=== PATIENT | female | born 1985 | race Two or more races ===

== ENCOUNTER 2021-07-07 15:15 | Emergency (ER) | payer OTHER, MEDICAID, SELFPAY ==
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
[2021-07-07 15:29] VITALS: BP 135/82; PULSE 100; RESP 20; TEMP 36.8; O2SAT 97; BMI 33.6
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
[2021-07-07] MEDS: Acetaminophen 325 MG TABLET 975 MG PO (15:55)
[2021-07-07] MEDS: Ketorolac Tromethamine 15 MG/ML VIAL IM (15:55)
[2021-07-07] MEDS: Diphth,Pertus(ACell),Tet Adult 0.5 ML SYRINGE IM (15:56)
== END 2021-07-07 17:47 | disposition home or self-care (01) ==
PROVIDERS: Emergency Provider Internal Medicine
DX: S00.83XA Contusion of other part of head, initial encounter (principal); V43.02XA Car driver injured in collision with other type car in nontraffic accident, initial encounter; Y93.89 Activity, other specified; Y92.9 Unspecified place or not applicable; Y99.9 Unspecified external cause status
CPT/HCPCS: 70450; 70486; 72125; 73080; 90471; 90715; 96372; 99284; J1885

== ENCOUNTER 2022-10-17 15:05 | Outpatient (REF) | payer OTHER, MEDICAID, SELFPAY ==
[2022-10-19 14:11] LABS: H Pylori Breath Test Negative (Negative)
== END 2022-10-17 15:06 | disposition home or self-care (01) ==
LOC: HO.LNP 15:05
PROVIDERS: Visit Provider Physician Assistant Surgical
DX: E66.01 Morbid (severe) obesity due to excess calories (principal)
CPT/HCPCS: 83013

== ENCOUNTER 2022-10-20 08:49 | Outpatient (REF) | payer OTHER, SELFPAY ==
--- NOTE | ~2022-10-20 | XR_ITS ---
EXAMINATION: XR CHEST CLINICAL INFORMATION: Morbid/severe obesity due to excess calories COMPARISON: None TECHNIQUE: 2 views of the chest were obtained. FINDINGS: No significant abnormality is noted involving the heart, lungs, mediastinum, bony thorax or soft tissues. XR/XR chest 2V IMPRESSION: Unremarkable chest examination.
[2022-10-20 09:34] LABS: MANUAL DIFF FLAG NO
[2022-10-20 10:05] LABS: Basophils Percent Auto 0.4 % (0-2); Eosinophils Absolute Auto 0.2 X10*3/uL (0.0-0.4); Eosinophils Percent Auto 2.7 % (0-4); Hematocrit 40.8 % (37.0-47.0); Hemoglobin 13.7 g/dl (12.0-16.0); Imm Gran Abs Auto 0.02 X10*3/uL (0.00-0.03); Imm Gran Pct Auto 0.3 % (0.0-0.4); Lymphocytes Absolute Auto 1.7 X10*3/uL (1.2-4.9); Lymphocytes Percent Auto 21.1 % (20-40); Mean Corpuscular HGB Conc 33.6 g/dl (31.0-35.0); Mean Corpuscular Hemoglobin 28.8 pg (27.0-33.0); Mean Corpuscular Volume 85.7 fL (80.0-98.0); Mean Platelet Volume 11.9 fL (9.4-12.3); Monocytes Absolute Auto 0.5 X10*3/uL (0.1-1.2); Monocytes Percent Auto 6.9 % (2-11); Neutrophils Absolute Auto 5.4 x10*3/uL (2.0-8.3); Neutrophils Percent Auto 68.6 % (45-73); Platelet Count 256 X10*3/uL (160-400); Red Blood Count 4.76 X10*6/uL (4.20-5.50); Red Cell Distribution Width 13.4 % (11.0-16.0); White Blood Count 7.9 X10*3/uL (4.8-10.8)
[2022-10-20 10:42] LABS: Estimated Average Glucose 91 mg/dL; Hemoglobin A1c % 4.8 %
[2022-10-20 11:07] LABS: Alanine Aminotransferase 22 U/L (0-31); Albumin Level 4.3 g/dL (3.5-5.0); Alkaline Phosphatase 66 U/L (39-117); Anion Gap 11 (12-20); Aspartate Amino Transferase 17 U/L (5-31); Bilirubin Total 0.7 mg/dL (0.0-1.0); Blood Urea Nitrogen 8 mg/dL (9-16); C Reactive Protein 0.79 mg/dL (< or = 0.50); Calcium 9.3 mg/dL (8.4-10.2); Carbon Dioxide 23 mmol/L (22-29); Chloride 108 mmol/L (96-108); Cholesterol 162 mg/dL; Estimated Glomerular Filt Rate > 60; Ferritin 207 ng/mL (10-122); Glucose Random 81 mg/dL (60-115); HDL Cholesterol 41 mg/dL; Insulin 4 uU/mL (2-29); Iron 58 mcg/dL (30-160); LDL Cholesterol Calculated 111 mg/dl; Percent Iron Saturation 24 % (15-50); Potassium 4.3 mmol/L (3.3-5.1); Sodium 138 mmol/L (135-145); TSH reflex Free T4 0.93 uIU/mL (0.32-4.0); Total Iron Binding Capacity 237 mcg/dL (228-428); Total Protein 7.1 g/dL (6.5-8.0); Triglycerides 50 mg/dL; Unsaturated Iron Binding 179 ug/dL; Vitamin D 25-OH Total 12.7 ng/mL (>30)
[2022-10-20 11:16] LABS: Folate 11.9 ng/mL (> or = 4.0); Vitamin B12 396 pg/mL (200-900)
[2022-10-22 23:28] LABS: Calcium (PTHI) 9.8 mg/dL (8.6-10.2); PTHI 71 pg/mL (16-77)
[2022-10-24 12:43] LABS: Zinc 68 mcg/dL (60-130)
[2022-10-24 21:18] LABS: Vitamin A 26 mcg/dL (38-98)
[2022-10-27 10:03] LABS: Vitamin B1 <6 nmol/L (8-30)
== END 2022-10-20 08:50 | disposition home or self-care (01) ==
LOC: HO.LAB 08:49
PROVIDERS: Visit Provider Physician Assistant Surgical
DX: E66.01 Morbid (severe) obesity due to excess calories (principal)
CPT/HCPCS: 36415; 71046; 80053; 80061; 82306; 82607; 82728; 82746; 83036; 83525; 83540; 83970; 84425; 84443; 84590; 84630; 85025; 86140

== ENCOUNTER → 2022-10-23 14:17 | Outpatient (REF) | payer OTHER, SELFPAY ==
--- NOTE | 2022-10-23 14:27 | ECG_ITS ---
Test Reason : e66.01 Blood Pressure : / mmHG Vent. Rate : 088 BPM Atrial Rate : 088 BPM P-R Int : 150 ms QRS Dur : 078 ms QT Int : 376 ms P-R-T Axes : 064 030 032 degrees QTc Int : 454 ms Normal sinus rhythm with sinus arrhythmia Possible Left atrial enlargement Borderline ECG No previous ECGs available Referred By: Felix Thornton Electronically Signed By:Moustapha Mayers
== END ==
LOC: HO.CARD 14:17
PROVIDERS: PCP Internal Medicine; Visit Provider Physician Assistant Surgical
DX: E66.01 Morbid (severe) obesity due to excess calories (principal)
CPT/HCPCS: 93005

== ENCOUNTER → 2022-11-16 13:46 | Outpatient (BNVA) | payer OTHER, SELFPAY | PROVIDERS: PCP Internal Medicine; Visit Provider Physician Assistant Surgical | DX: Z13.89 Encounter for screening for other disorder (principal) ==

== ENCOUNTER → 2022-11-22 15:18 | Outpatient (BNVA) | payer OTHER, SELFPAY | PROVIDERS: PCP Internal Medicine; Visit Provider Dietitian, Registered | DX: E66.9 Obesity, unspecified (principal) | CPT/HCPCS: 97802 ==

== ENCOUNTER 2022-12-06 09:16 | Outpatient (REF) | payer OTHER, SELFPAY ==
--- NOTE | ~2022-12-06 | FL_ITS ---
EXAMINATION: XR FLUOROSCOPY UPPER GI WITH AIR CLINICAL INFORMATION: Severe obesity due to excess calories. COMPARISON: None. TECHNIQUE: Routine upper GI air-contrast study was performed in upright and lying positions. FINDINGS: Following oral administration of thick barium and effervescent granules, there is normal propagation bolus from the oral cavity through the pharynx and esophagus and into the stomach without any evidence of obstruction, narrowing or stricture. The course, caliber and peristalsis of the stomach, duodenal bulb and the sweep are normal. The mucosal pattern of the stomach is normal. There is mild gastroesophageal reflux without hiatal hernia. FLUOROSCOPY TIME: 1.9 minutes. DOSE AREA PRODUCT: 40.926 uGy-m2 (microgray-meter squared) FL/FL upper GI w air IMPRESSION: Mild gastroesophageal reflux without hiatal hernia.
--- NOTE | ~2022-12-06 | US_ITS ---
EXAMINATION: US COMPLETE ABDOMEN WITH LIVER ELASTOGRAPHY CLINICAL INFORMATION: Morbid/severe obesity. COMPARISON: None. TECHNIQUE: Real-time imaging of the abdominal viscera. Noninvasive ultrasound liver fibrosis assessment is performed using Rj ElastPQ point quantification shear wave elastography (2D-SWE) with a C5-2 MHz transducer. Multiple elastography samples are obtained. FINDINGS: PANCREAS: The visualized pancreatic head and body are normal in appearance. The tail of of the pancreas is obscured from visualization by the overlying bowel gas. ABDOMINAL AORTA: The proximal, middle, and distal aortic segments are normal in caliber. INFERIOR VENA CAVA: Visualized portions are normal. LIVER: Normal. The liver demonstrates normal size, contour and echogenicity. No focal lesion or intrahepatic biliary duct dilatation. The right lobe measures 13.9 cm in length. The left lobe measures 9.0 cm in length. Portal flow is hepatopedal. Shear wave liver elastography is extremely limited due to body habitus. The median stiffness is 1.52 m/s (reference: normal median stiffness is 1.3 m/s or less). IQR/median stiffness to assess sampling precision is 0.18 (reference: good quality data set is IQR/median stiffness of 0.15 or less). GALLBLADDER: There is a nonmobile echogenic polyp measuring 0.2 x 0.1 x 0.2 cm. Gallbladder wall thickness is 0.28 cm. The gallbladder is physiologically distended without evidence of stones, sludge, polyps, wall thickening or pericholecystic fluid. COMMON BILE DUCT: Normal in caliber measuring 0.5 cm in diameter. RIGHT KIDNEY: There is mild pelvic fullness upper pole right kidney. No renal calculi or focal parenchymal lesions. The kidney measures 12.5 cm in maximum dimension. LEFT KIDNEY: Normal. No hydronephrosis. No renal calculi or focal parenchymal lesions. The kidney measures 10.7 cm in maximum dimension. SPLEEN: Normal. The spleen measures 12.1 cm in maximum dimension. FREE FLUID: None. US/US abdomen comp w elastography IMPRESSION: 1. Gallbladder polyps but no echogenic stones seen. 2. Mild pelvic fullness upper pole right kidney. 3. Liver elastography: Limited evaluation due to body habitus. Median liver stiffness is 1.52 m/s corresponding to cACLD (ruled out). REFERENCE: Society of Radiologists in Ultrasound Liver Stiffness Thresholds (2020): LIVER STIFFNESS THRESHOLDS: *Liver Stiffness equal or less than 1.3 m/s: High probability of being normal. *Liver Stiffness less than 1.7 m/s: In the absence of other known clinical signs, rules out compensated advanced chronic liver disease. *Liver Stiffness 1.7-2.1 m/s: Suggestive of compensated advanced chronic liver disease but need further test for confirmation. *Liver Stiffness over 2.1 m/s: Rules in compensated advanced chronic liver disease. *Liver Stiffness over 2.4 m/s: Suggestive of clinically significant portal hypertension. QUALITY OF DATA SET: *IQR/Median value equal or less than 0.15 implies a quality data set. *IQR/Median value over 0.15 implies a poor quality data set. SIGNIFICANT CHANGE FROM PRIOR EXAM: Significant change if liver stiffness measurement is 10% or greater from prior exam. OTHER CONSIDERATIONS: The stage of liver fibrosis may be overestimated in the setting of acute hepatitis, liver inflammation, elevated liver function tests, hepatic vascular congestion, obstructive cholestasis, non-fasting state, and infiltrative diseases such as amyloidosis and lymphoma. In some patients with NAFLD, the liver stiffness thresholds for compensated advanced chronic liver disease may be lower. In causes other than viral hepatitis and NAFLD, liver stiffness thresholds are not well established.
== END 2022-12-06 09:17 | disposition home or self-care (01) ==
LOC: HO.US 09:16
PROVIDERS: PCP Internal Medicine; Visit Provider Physician Assistant Surgical
DX: Z01.818 Encounter for other preprocedural examination (principal); E66.01 Morbid (severe) obesity due to excess calories; K21.9 Gastro-esophageal reflux disease without esophagitis
CPT/HCPCS: 74246; 76705; 76981

== ENCOUNTER → 2022-12-07 14:52 | Outpatient (BNVA) | payer OTHER, SELFPAY | PROVIDERS: PCP Internal Medicine; Visit Provider Surgery | DX: Z13.89 Encounter for screening for other disorder (principal) ==

== ENCOUNTER → 2023-02-15 13:48 | Outpatient (BNVA) | payer OTHER, SELFPAY | PROVIDERS: PCP Internal Medicine; Visit Provider Physician Assistant Surgical | DX: Z13.89 Encounter for screening for other disorder (principal) ==

== ENCOUNTER 2023-05-27 11:30 | Outpatient (AMB) | payer OTHER, SELFPAY ==
--- NOTE | 2023-05-27 11:42 | MHC.OFFVISWM ---
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 2 protein bars ([employer] Perfect bars at [employer], [facility], or [employer]) at 9am-11am and 3pm-5pm per day and dinner at 6pm (8 forks of protein and 8 forks of salad/vegetables). Drinking 64 oz of water Current exercise plan includes: goes to gym, treadmill, 1 hour, 5 x per week.? exercise plan: She states she had hurt her back and was unable to exercise for a month. She just started walking again this past weekend, [address], on treadmill weight loss: 20.2 pounds or 8.8 % [facility] awakens at: 4 am, bed at: 8 pm [facility] Medical History No known health problems Surgical History No history of previous surgery Family History Mother Hypertension Father Hypertension Sister No problems noted. Sister No problems noted. Sister No problems noted. Sister No problems noted. Sister Heart disease Daughter No problems noted. Social History Alcohol intake: current Alcohol intake frequency: a few times a week Patient Tobacco Use Status: Never used Tobacco Assessment & Plan Assessment & Plan (1) Obesity (BMI 30-39.9): Code(s): E66.9 - Obesity, unspecified Plan: 1. Start this meal plan on 05/29/23, approximately 2 weeks prior to surgery. Using Pure Protein shakes First shake 1 scoop, all other shakes 1/2 scoop 5-7 am 9-11 am 12-1 pm 2-4 pm 5-7 pm 2. Drink at least 64 oz fluids daily. NO SODA OR JUICE. NO CAFFEINE 3. Continue to take your vitamins as you have been doing 4. No ALCOHOLIC beverages 5. No Advil, Motirn, Aleve or NSAIDS 6. Midnight on the night before surgery, nothing by mouth to eat or drink except as specifically advised by your surgeon for medications in the morning with a small sip of water. 7. Text me if you have any questions or concerns. [phone] Telehealth Telehealth Location of provider rendering services: practice address Location of patient: other Patient Identification confirmed using: Name, : Yes Telehealth method: video Patient verbally consented to treatment: Yes Patient verbally consented to billing insurance company: Yes Patient informed of any privacy concerns related to visit: Yes Minutes spent on Phone/Video with Pt.: 10 Coding Level of Care Code Tele Est Pt Level 3 (81457) Diagnoses Obesity (BMI 30-39.9) E66.9 Time Spent (min) 20
[2023-05-27 11:43] VITALS: BMI 37.0
== END 2023-05-27 12:22 | disposition home or self-care (01) ==
LOC: HO.HBS 11:56
PROVIDERS: PCP Internal Medicine; Visit Provider Physician Assistant Surgical
DX: E66.9 Obesity, unspecified (principal); Z68.37 Body mass index [BMI] 37.0-37.9, adult
CPT/HCPCS: 99213

== ENCOUNTER → 2023-05-27 11:30 | Outpatient (BNVA) | payer OTHER, SELFPAY | PROVIDERS: PCP Internal Medicine; Visit Provider Physician Assistant Surgical ==

== ENCOUNTER 2023-05-30 13:53 | Outpatient (AMB) | payer OTHER, SELFPAY ==
--- NOTE | 2023-05-30 13:59 | MHC.OFFVISWM ---
Intake VS Expanded 05/30/23 14:05 Height 5 ft 3 in Weight 205 lb 9.6 oz BMI 36.4 Blood Pressure Location Rt brachial Blood Pressure Position Sitting Pulse 88 Pulse Source Pulse Oximeter Temp 97.6 F Temperature Source Temporal Artery Scan Pulse Oximetry 96 Oxygen Delivery Method Room Air Body Fat 96.8 Body Fat Percentage 47.1 Free Fat Mass 108.6 Muscle Mass 103.2 Visceral Mass 11.0 Water Mass 77.8 BMR 1,559 Intake Visit Reasons: (OV) Pre Op LSG 06/12/23 Viner Operator Required: Yes Viner Operator Name: Marry Information Interpreted: non-clinical & clinical Benefits Advisor: Benefits Advisor Present Allergies No Known Allergies Allergy (Verified 05/30/23 14:04) Medication List - Last Reconciled 05/30/23 by Osmar Cabezas MD acetaminophen 500 mg (15 mL) PO Q6H PRN cholecalciferol (vitamin D3) 125 mcg PO DAILY PRN cyanocobalamin (vitamin B-12) 500 mcg (2 x 250 mcg) PO DAILY ondansetron HCl 4 mg PO Q6H PRN pantoprazole 40 mg PO QAM 30 days polyethylene glycol 3350 (Miralax) Take 7 packets 2 days before surgery and 7 packets 1 day before surgery. Mix each packet with 8 oz's of water before surgery. sucralfate 10 mL PO BID 30 days thiamine HCl (vitamin B1) 100 mg PO DAILY vitamin A palmitate 10,000 units PO DAILY HPI HPI Comments History of Present Illness Details The patient is a 37-year-old woman who is seen with the help of Lisa serving as manager construction to discuss bariatric surgery. The patient reports a lifelong struggle with obesity and a highest body weight of 234lbs. The patient entered our program for surgical weight loss on 10/17/2022 with a BMI of 39.7/weight of 224 lb. She is interested in bariatric surgery because of a lifelong swartz with obesity. She has tried numerous fad diets and restricted calorie plans of medical weight loss with some success but his always regained weight. She has been working with Felix Thornton PA-C and demonstrating successful weight loss. She has dropped down to today's weight of 205.6 lb with a BMI of 36.4. She is interested in a laparoscopic sleeve gastrectomy. 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 She is currently on the liver shrinking/liquid preoperative diet Pre op work up completed as follows: SWL classes:? 06/11 BH appts: cleared [place]-11/29/22 ? ? RD appts: cleared-11/22/22 Labs: 10/20/22-low D, B1, B12:396 H. pylori: 10/17/22-neg CXR: 10/20/22-nad EK10/23/22-poss L atrial enlargement, NSR ABD U/S: 12/06/22 GB polyps UGI: 12/06/22 No HH, +GERD PFSH Medical History No known health problems Surgical History No history of previous surgery Family History Mother Hypertension Father Hypertension Sister No problems noted. Sister No problems noted. Sister No problems noted. Sister No problems noted. Sister Heart disease Daughter No problems noted. Social History Alcohol intake: current Alcohol intake frequency: a few times a week Patient Tobacco Use Status: Never used Tobacco Review of Systems Const All systems reviewed & are unremarkable except as noted in HPI and below Reports as per HPI Physical Exam Vital Signs: Last Vital Signs Temp 97.6 F 05/30/23 14:05 Pulse 88 05/30/23 14:05 Pulse Ox 96 05/30/23 14:05 Oxygen Delivery Method Room Air 05/30/23 14:05 BMI result Body Mass Index 36.4 On exam, the patient is nontoxic She is in good spirits She is anicteric She is in no respiratory distress Abdomen is obese but nontender and soft Lower extremities are free of any edema Results Reviewed Results Reviewed: Diagnostic imaging from 12/06/2022 Upper GI showed mild GERD with no evidence of a hiatal hernia Abdominal ultrasound showed a small gallbladder polyp 0.2cm x 0.1cm x 0.2cm and the common bile duct 5 mm with no significant hepatomegaly. NAFLD is not noted CXR NAD Labs from 10/20/22 White blood cell count 7.9 with normal differential; Hemoglobin 13.7 with normal indices, platelet count 256K Electrolytes are within normal parameters, BUN is 8/creatinine 0.5 a Lipid profile and liver function tests are within normal parameters Hemoglobin A1c 4.8 Iron studies show a slightly elevated ferritin at 207 but are otherwise within normal parameters Vitamin deficiencies of vitamin-A in B1 are noted and treated Helicobacter pylori breath test negative GERD 0 WILLIAM 1 ESS 6 QOL 43 Assessment & Plan Assessment & Plan (1) Obesity (BMI 30-39.9): Code(s): E66.9 - Obesity, unspecified (2) Morbid obesity: Code(s): E66.01 - Morbid (severe) obesity due to excess calories (3) Class 2 obesity: Code(s): E66.9 - Obesity, unspecified Plan The patient is congratulated on her ongoing healthy lifestyle changes and weight loss since entering the program. The option of continued medical weight loss or 2nd opinion was offered but declined. An manager construction was present for today's visit. The option of continued medical weight loss versus laparoscopic sleeve gastrectomy, possible hiatal hernia repair, intraoperative upper endoscopy and possible ventral hernia repair was reviewed and the patient would like to proceed. I reviewed the inherent risks of this procedure which include, but are not limited to: Bleeding that could require another operation or blood transfusion; the inherent risks of transfusion reaction infectious disease from blood transfusions; the risk of staple line leaks that could cause sepsis, multi-system organ failure and ; the risk of mesenteric or deep vein thrombosis of the lower extremities that could cause a fatal pulmonary embolism was reviewed; the risk of GERD that could require conversion to gastric bypass was discussed; the risk of recurrent hiatal hernia, especially in the setting of weight regain was reviewed. The risk of weight regain if maladaptive eating and sedentary behavior continue was discussed. The importance of proper diet and increased activity to augment surgical weight loss and the fact that no operation would result in weight loss of poor dietary decisions and sedentary behavior are resumed were discussed at length and apparently understood. The patient had the option of having a bobbin handler present and declined this option. Typical jatinder/postoperative course was reviewed with the patient including need for bowel prep, hydration, celebrate 4 in 1 protein shakes, early ambulation to minimize risks of DVT and PE. The patient is advised to get her prescriptions and protein shakes preoperatively. Preop Labs ordered. Activity restrictions postoperatively were reviewed and questions answered. She left FMLA forms to be completed. Activity restrictions were reviewed and apparently understood. Prescriptions were sent to her pharmacy. She will void her urinary bladder liquefaction and regasification helper, have SCDs in place and received Ancef 2 g IV liquefaction and regasification helper to surgery. Patient is also requested to provide me with a contact if she wishes someone to be called postoperatively. Orders: Orders Type and Screen 05/29/23 E66.01 - Morbid (severe) obesity due to excess calories, E66.9 - Obesity, unspecified Vitamin B12 05/29/23 E66.01 - Morbid (severe) obesity due to excess calories, E66.9 - Obesity, unspecified Comprehensive Met. Panel 05/29/23 E66.01 - Morbid (severe) obesity due to excess calories, E66.9 - Obesity, unspecified C Reactive Protein 05/29/23 E66.01 - Morbid (severe) obesity due to excess calories, E66.9 - Obesity, unspecified Ferritin 05/29/23 E66.01 - Morbid (severe) obesity due to excess calories, E66.9 - Obesity, unspecified Hemoglobin A1c 05/29/23 E66.01 - Morbid (severe) obesity due to excess calories, E66.9 - Obesity, unspecified IRON PROFILE 05/29/23 E66.01 - Morbid (severe) obesity due to excess calories, E66.9 - Obesity, unspecified Lipid Panel 05/29/23 E66.01 - Morbid (severe) obesity due to excess calories, E66.9 - Obesity, unspecified PTHI 05/29/23 E66.01 - Morbid (severe) obesity due to excess calories, E66.9 - Obesity, unspecified TSH reflex Free T4 05/29/23 E66.01 - Morbid (severe) obesity due to excess calories, E66.9 - Obesity, unspecified Vitamin A 05/29/23 E66.01 - Morbid (severe) obesity due to excess calories, E66.9 - Obesity, unspecified Vitamin B1 05/29/23 E66.01 - Morbid (severe) obesity due to excess calories, E66.9 - Obesity, unspecified Vitamin D 25-OH Total 05/29/23 E66.01 - Morbid (severe) obesity due to excess calories, E66.9 - Obesity, unspecified Zinc 05/29/23 E66.01 - Morbid (severe) obesity due to excess calories, E66.9 - Obesity, unspecified Prothrombin Time INR 05/29/23 E66.01 - Morbid (severe) obesity due to excess calories, E66.9 - Obesity, unspecified Partial Thromboplastin Time 05/29/23 E66.01 - Morbid (severe) obesity due to excess calories, E66.9 - Obesity, unspecified Complete Blood Count Auto Diff 05/29/23 E66.01 - Morbid (severe) obesity due to excess calories, E66.9 - Obesity, unspecified Medications: New polyethylene glycol 3350 (Miralax) Take 7 packets 2 days before surgery and 7 packets 1 day before surgery. Mix each packet with 8 oz's of water before surgery. 14 packets 0RF ondansetron HCl 4 mg PO Q6H PRN 20 tabs 0RF nausea and vomiting pantoprazole 40 mg PO QAM 30 days 30 tabs 2RF sucralfate 10 mL PO BID 30 days 600 mL 2RF acetaminophen 500 mg (15 mL) PO Q6H PRN 237 mL 2RF fever or pain Coding Level of Care Code Est Pt Level 4 (40087) Diagnoses Obesity (BMI 30-39.9) E66.9 Morbid obesity E66.01 Class 2 obesity E66.9
[2023-05-30 14:05] VITALS: PULSE 88; TEMP 36.4; O2SAT 96; BMI 36.4
== END 2023-05-30 15:18 | disposition home or self-care (01) ==
PROVIDERS: PCP Internal Medicine; Visit Provider Surgery
DX: E66.9 Obesity, unspecified (principal); E66.01 Morbid (severe) obesity due to excess calories
CPT/HCPCS: 99214

== ENCOUNTER → 2023-05-30 13:53 | Outpatient (BNVA) | payer OTHER, SELFPAY | PROVIDERS: PCP Internal Medicine; Visit Provider Surgery | DX: E66.01 Morbid (severe) obesity due to excess calories (principal); E66.9 Obesity, unspecified ==

== ENCOUNTER 2023-06-07 07:49 | Outpatient (REF) | payer OTHER, SELFPAY ==
[2023-06-07 08:26] LABS: MANUAL DIFF FLAG NO
[2023-06-07 09:10] LABS: Basophils Percent Auto 0.5 % (0-2); Eosinophils Absolute Auto 0.1 X10*3/uL (0.0-0.4); Eosinophils Percent Auto 1.3 % (0-4); Hematocrit 43.6 % (37.0-47.0); Hemoglobin 14.7 g/dl (12.0-16.0); Imm Gran Abs Auto 0.04 X10*3/uL (0.00-0.03); Imm Gran Pct Auto 0.5 % (0.0-0.4); Lymphocytes Absolute Auto 1.4 X10*3/uL (1.2-4.9); Lymphocytes Percent Auto 16.6 % (20-40); Mean Corpuscular HGB Conc 33.7 g/dl (31.0-35.0); Mean Corpuscular Hemoglobin 28.7 pg (27.0-33.0); Mean Platelet Volume 12.8 fL (9.4-12.3); Monocytes Absolute Auto 0.6 X10*3/uL (0.1-1.2); Monocytes Percent Auto 6.6 % (2-11); Neutrophils Absolute Auto 6.4 x10*3/uL (2.0-8.3); Neutrophils Percent Auto 74.5 % (45-73); Platelet Count 235 X10*3/uL (160-400); Red Blood Count 5.13 X10*6/uL (4.20-5.50); Red Cell Distribution Width 12.5 % (11.0-16.0); White Blood Count 8.6 X10*3/uL (4.8-10.8)
[2023-06-07 09:15] LABS: INTERNATIONAL NORM RATIO 1.2 (0.9-1.1); Prothrombin Time 14.3 SEC (11.1-13.3)
[2023-06-07 09:16] LABS: Estimated Average Glucose 88 mg/dL; Hemoglobin A1c % 4.7 %
[2023-06-07 10:08] LABS: Alanine Aminotransferase 22 U/L (0-31); Albumin Level 4.4 g/dL (3.5-5.0); Alkaline Phosphatase 71 U/L (39-117); Anion Gap 16 (12-20); Aspartate Amino Transferase 18 U/L (5-31); Bilirubin Total 0.7 mg/dL (0.0-1.0); Blood Urea Nitrogen 8 mg/dL (9-16); C Reactive Protein 1.77 mg/dL (< or = 0.50); Calcium 9.8 mg/dL (8.4-10.2); Carbon Dioxide 22 mmol/L (22-29); Chloride 105 mmol/L (96-108); Cholesterol 143 mg/dL; Estimated Glomerular Filt Rate > 60; Glucose Random 68 mg/dL (60-115); HDL Cholesterol 40 mg/dL; Iron 66 mcg/dL (30-160); LDL Cholesterol Calculated 91 mg/dl; Percent Iron Saturation 31 % (15-50); Potassium 4.1 mmol/L (3.3-5.1); Sodium 139 mmol/L (135-145); Total Iron Binding Capacity 213 mcg/dL (228-428); Total Protein 7.9 g/dL (6.5-8.0); Triglycerides 61 mg/dL; Unsaturated Iron Binding 147 ug/dL
[2023-06-07 10:25] LABS: Ferritin 356 ng/mL (10-122); Vitamin D 25-OH Total 40.7 ng/mL (>30)
[2023-06-07 10:26] LABS: Vitamin B12 1541 pg/mL (200-900)
[2023-06-10 12:42] LABS: Calcium (PTHI) 9.6 mg/dL (8.6-10.2); PTHI 44 pg/mL (16-77)
[2023-06-12 00:34] LABS: Zinc 89 mcg/dL (60-130)
[2023-06-12 16:22] LABS: Vitamin B1 35 nmol/L (8-30)
[2023-06-13 01:18] LABS: Vitamin A 17 mcg/dL (38-98)
== END 2023-06-07 07:50 | disposition home or self-care (01) ==
LOC: HO.LAB 07:49
PROVIDERS: PCP Family Medicine; Visit Provider Surgery
DX: E66.01 Morbid (severe) obesity due to excess calories (principal)
CPT/HCPCS: 36415; 80053; 80061; 82306; 82607; 82728; 83036; 83540; 83970; 84425; 84443; 84590; 84630; 85025; 85610; 85730; 86140

== ENCOUNTER 2023-06-12 08:03 | Inpatient (IN) | payer OTHER, SELFPAY ==
[2023-06-06 12:59] VITALS: BMI 35.6
[2023-06-11 10:03] LABS: COVID-19 Test Negative (Negative); IDNOW Serial# 08D9AD1C
--- NOTE | 2023-06-11 10:09 | P.CONAN_ITS ---
Documented by User: Sanna Jacobson NP 06/11/23 10:12 HPI - Anesthesia Eval Consult details Narrative: 38yo F for Gastrectomy Sleeve,EGD,poss diaphragmatic hernia,poss ventral hernia,poss open, PMFSH Active Problems Active Problems: All Active Problems (Updated 05/30/23 @ 14:14 by Osmar Cabezas MD) Class 2 obesity (Acute) Obesity (BMI 30-39.9) (Acute) Morbid obesity (Acute) Past Medical History Medical History No known health problems Family History Family History Mother Hypertension Father Hypertension Sister No problems noted. Sister No problems noted. Sister No problems noted. Sister No problems noted. Sister Heart disease Daughter No problems noted. Surgical History Surgical History No history of previous surgery Social History Social History Household Members Other:: mother Are you a primary childcare center administrator to a significant other at home: No Do you presently have visiting nurse or other home services: No Alcohol intake: current Alcohol intake frequency: does not drink Patient Tobacco Use Status: Never used Tobacco Use of substances other than those prescribed or required for medical reasons: No Have you been hit, kicked, punched, or otherwise hurt by someone within the past year? If so, by whom?: No Are you DNR?: No Advance Directives: No Advance Directives Information Provided: No Advance Directives on File: No Recently lost weight without trying: No Eating poorly because of decreased appetite: No Nutrition Risks: No Nutritional Risk Patient : No FDLMP: 05/22/23 : No Poor oral hygiene: No Meds Allergies Allergy/AdvReac Type Severity Reaction Status Date / Time No Known Allergies Allergy Verified 05/30/23 14:04 Exam Exam Date and Time: June 11, 2023 1009 Height,Weight and Vital Signs: Height 5 ft 3 in Weight 91.172 kg Pertinent Lab Results Pertinent Lab Results: Laboratory Tests 06/07/23 06/11/23 08:18 09:33 COVID-19 ([place]) Negative COVID-19 Clin Com See Note Blood Type O Positive Antibody Screen NEGATIVE Laboratory Tests 06/07/23 06/07/23 08:24 08:24 WBC 8.6 Hgb 14.7 Hct 43.6 Plt Count 235 Sodium 139 Potassium 4.1 Chloride 105 Carbon Dioxide 22 BUN 8 L Creatinine 0.61 Narrative Narrative: EKG 10/2022 Vent. Rate : 088 BPM ? ? Atrial Rate : 088 BPM ?? P-R Int : 150 ms? QRS Dur : 078 ms ? ? QT Int : 376 ms ? ? ? P-R-T Axes : 064 030 032 degrees ?? QTc Int : 454 ms ? Normal sinus rhythm with sinus arrhythmia Possible Left atrial enlargement Borderline ECG No previous ECGs available Assessment and Plan Assessment Anesthesia Assessment: Chart Reviewed Documented by User: Ami Mercer MD 06/12/23 09:59 [facility] Past Medical History Medical History No known health problems Family History Family History Mother Hypertension Father Hypertension Sister No problems noted. Sister No problems noted. Sister No problems noted. Sister No problems noted. Sister Heart disease Daughter No problems noted. Family history of problems with anesthesia: No Surgical History Surgical History No history of previous surgery History of Problems with Anesthesia: No Social History Social History Household Members Other:: mother Are you a primary childcare center administrator to a significant other at home: No Do you presently have visiting nurse or other home services: No Alcohol intake: current Alcohol intake frequency: does not drink Patient Tobacco Use Status: Never used Tobacco Use of substances other than those prescribed or required for medical reasons: No Have you been hit, kicked, punched, or otherwise hurt by someone within the past year? If so, by whom?: No Are you DNR?: No Advance Directives: No Advance Directives Information Provided: No Advance Directives on File: No Recently lost weight without trying: No Eating poorly because of decreased appetite: No Nutrition Risks: No Nutritional Risk Patient : No FDLMP: 05/22/23 : No Poor oral hygiene: No Meds Allergies Allergy/AdvReac Type Severity Reaction Status Date / Time No Known Allergies Allergy Verified 05/30/23 14:04 Exam Airway Mallampati Class: II TM Dist: >3cm Neck ROM: Full Loose/Missing/Broken Teeth: Lower Heart: rrr Lungs: cta Assessment and Plan Assessment Anesthesia Assessment: Anesthesia Plan Discussed Final Anesthetic Review Family History of Problems with Anesthesia: No History of Problems with Anesthesia: No NPO: Yes ASA Class: II Final Preanesthetic Review: No Changes in Pt Med Stat, Meds/Allgs Chart Reviewed, Consent Obtained/Reviewed and Anes Risks/Benef Reviewed Procedure Risk: Intermediate Anesthetic Plan Anesthetic Plan: GA Disposition: Standard PACU
--- NOTE | 2023-06-11 16:14 | MHC.SHP ---
Pre-Procedural Eval Section A Date of Service: 06/11/23 The patient is an INPATIENT: Yes The History & Physical has been completed within 30 days and I have reviewed it.: Yes Section B Chief Complaint: Obesity, unspecified Allergies: Allergies Allergy/AdvReac Type Severity Reaction Status Date / Time No Known Allergies Allergy Verified 05/30/23 14:04 Plan I have reviewed the history and physical and performed a pertinent physical examination on my patient. No changes have occurred unless specified. Time Spent With Patient Time: Total time managing care of this patient today ____ minutes.
[2023-06-12] VITALS (14 sets, daily range): BP systolic 121–148; BP diastolic 65–84; PULSE 79–101; RESP 16–20; TEMP 36–36.6; O2SAT 94–99; BMI 35.5
--- NOTE | 2023-06-12 08:11 | PHA.MEDREC ---
Pharmacy Consult ? Medication Reconciliation Pharmacy has completed the medication reconciliation. Reviewed med rec done by nursing
[2023-06-12] MEDS: Lactated Ringers 1,000 ML 150 ML IVCONT ×2 (08:42→13:58)
[2023-06-12] MEDS: Aprepitant 32 MG/4.4 ML VIAL IVPUSH (08:42)
[2023-06-12 09:06] LABS: HCG Quantitative < 2 mIU/mL
--- NOTE | 2023-06-12 13:10 | P.DS_ITS ---
DS: Providers Provider Date of Service: 06/13/23 Date of admission: 06/12/23 08:03 Primary care physician: Chuy Pardo MD DS: Summary Hospital Course Hospital Course: ADMITTING DIAGNOSIS: morbid obesity DISCHARGE DIAGNOSIS: same, s/p laparoscopic sleeve gastrectomy PAST SURGICAL HISTORY: none PROCEDURE: upper endoscopy, laparoscopic sleeve gastrectomy DISCHARGE SUMMARY: History of Present Illness: The patient is a 38 year-old woman with a BMI of 39.7 kg/m2 and associated co- morbidities as described above. The patient had extensive work-up, lost19.6 lbs preoperatively and was electively scheduled for laparoscopic, possible open sleeve gastrectomy and gastropexy. Risks and complications of the surgery were discussed with the patient in advance, particularly the possibility of , pulmonary embolism, anastomotic leak, bleeding, bowel injury, GERD, cardiac, renal or pulmonary complications. The patient understood all the risks and was in agreement with the surgical plan. Hospital Course: The patient underwent an uneventful laparoscopic sleeve gastrectomy with gastropexy on the day of admission. Postoperatively, the patient was transferred to the surgical floor. The patient received IV Acetaminophen and IV dilaudid for pain control. Patient was started on bariatric phase 1 diet POD #0. On postoperative day one, the patient was feeling well without nausea, vomiting, fevers, or tachycardia. The patient had some mild incisional pain and the abdomen was soft. On the morning of postoperative day one, the patient was continued on 1 ounce of water or ice every half hour. During the day, the patient did fairly well, having some incisional pain, but able to ambulate adequately and to tolerate liquids well. Since the patient is doing well, we decided that the patient was ready to be discharged. The patient was given instructions to follow-up with me next week and to call my office for any fever over 101, persistent abdominal pain, nausea, vomiting, GERD, symptoms of DVT such as calf tenderness, or leg swelling, or pulmonary embolism such as chest pain or shortness of breath. The patient was also instructed to drink 40-60 ounces of liquids per day using the 1-ounce cups. The patient had been given prescriptions for Tylenol for pain, Zofran prn for nausea, and pantoprazole and carafate previously. The patient was encouraged to ambulate and use the incentive spirometer. The patient was allowed to shower, but no baths, and encouraged to stay active at home. All of these instructions were given to the patient personally. All questions were answered and the patient understood all instructions, the instructions were also given to the patient in print. Time Spent with Patient Time attestation: Total time managing care of this patient today ____ minutes. Discharge coordination time: Less than 30 minutes Quality: Safe Use of Opioids Does Pt have an Active Cancer Diagnosis on the Problem List?: No Quality: Stroke Does the patient have a stroke diagnosis?: No Physical Exam Vital Signs: Vital Signs: Last Vital Signs Temp 97.2 F 06/12/23 08:11 Pulse 101 H 06/12/23 08:11 Resp 16 06/12/23 08:11 BP 122/65 06/12/23 08:11 Pulse Ox 96 06/12/23 08:11 O2 Del Method Room Air 06/12/23 08:11 BMI result Body Mass Index 35.6 DS: Data Data Completed and Pending Pending studies at discharge: Pending at discharge 06/12/23 12:57 Surgical [PTH] Routine Labs on day of discharge: Laboratory Results - last 24 hr 06/12/23 08:30 Beta HCG, Quant < 2 Discharge Plan Discharge Anticipated Discharge Date/Time: 06/13/23 10:08 Patient Disposition: Home, Self-Care Discharge Diagnosis: s/p sleeve gastrectomy Referrals: Chuy Pardo MD [Primary Care Provider] - 1 Week Osmar Cabezas MD [Physician] - 1 Week Discharge Medications: Continued ondansetron HCl 4 mg tablet 4 mg PO Q6H PRN (Reason: nausea and vomiting) Qty: 20 0RF pantoprazole 40 mg tablet,delayed release (DR/EC) 40 mg PO QAM 30 Days Qty: 30 2RF sucralfate 100 mg/mL suspension 10 ml PO BID 30 Days Qty: 600 2RF acetaminophen 500 mg/15 mL liquid 500 mg PO Q6H PRN (Reason: fever or pain) Qty: 237 2RF Discontinued thiamine HCl (vitamin B1) 100 mg tablet 100 mg PO DAILY Qty: 30 5RF vitamin A palmitate 10,000 unit capsule 10,000 unit PO DAILY Qty: 30 2RF cyanocobalamin (vitamin B-12) 250 mcg tablet 500 mcg PO DAILY Qty: 60 2RF cholecalciferol (vitamin D3) 125 mcg (5,000 unit) capsule 125 mcg PO DAILY PRN (Reason: vitamin D deficiency) Qty: 30 3RF Discharge Orders: Discharge Order (Routine); Ordered 06/13/23 Ordered By: Felix Thornton Diet: bariatric diet Activity on Discharge: No heavy lifting Stand Alone Forms: Patient Portal Discharge page Care Plan Goals: weight loss Health Concerns: morbid obesity Plan of Treatment: No tub baths, sex or returning to work until discussed at first post op appointment. No exercise, alcohol, tobacco or illegal drug use. Continue to use incentive spirometer hourly while awake. Walk in home for 5- 10 minutes every 2 hours during the first week. Continue phase 1 diet today and start phase 2 diet tomorrow morning. Follow all instructions in the bariatric handbook and call with any questions. 1. Please call your doctor or come back to the emergency room should any new symptoms arise. 2. You will receive a courtesy call from [facility] 24-48 hours after discharge. 3. Activity: abstain from alcohol, practice limited stair climbing, no bending, no driving, no exercise, no illicit substances, no lifting, no sex, no tub bath, no work. 4. Diet: continue as discussed with bariatric team.. 5. Dressing Change/Wound Care: Do not change or remove surgical dressings unless they are wet or soiled. 6. Call your doctor if: - Your temperature exceeds 101.5 F - You experience excessive pain or swelling - You have an unexpected reaction to medication - You have excessive bleeding - You experience continued vomiting/nausea - Your incision begins to separate - Your incision shows signs of infection such as increased redness, swelling, excessive pain, heat, or drainage (light blood or clear fluid is normal) 7. General instructions: No lifting greater than 5 lbs for the next 4 weeks[address] within 24 hours of taking narcotic pain medications. If you do not move your bowels in the next 2 days, please take milk of magnesia over the counter. Please follow the post op diet and do not advance your diet until you are seen in the office in about 2 weeks. Please walk around your home every hour or two to prevent blood clots from forming in your legs. You do not need to wake from sleeping to walk. Please sleep in a bed or couch to prevent kinking at the hips and knees. Please take your incentive spirometer (your lung commercial driver's license driver) home with you and use it for the next few days to prevent pneumonias. You may shower, no hot tubs, baths or swimming pools. Please call the office with any questions or concerns such as increasing abdominal pain, fever, chills, shortness of breath, chest pain, leg pain or swelling, or redness or drainage from your incisions. Do not hesitate to contact the office with any questions at . The patient's medical history has been reviewed and they are considered low risk for post op DVT and therefore DVT prophylaxis is not considered necessary. Travel after surgery was reviewed. The patient has not disclosed any travel plans during the first 30 days after surgery and they have been advised that within the first 30 days after surgery any bus, plane, train or car travel over 2 hours in duration is contraindicated due to the possibility of developing blood clots from immobility. Any travel, needs to include periods of ambulation of 10 minutes in duration every 2 hours. The patient was instructed to discuss any plans for travel during this period with their bariatric surgeon. Assessment: stable, post op sleeve gastrectomy Discharge Date/Time: 06/13/23 11:33
--- NOTE | 2023-06-12 13:13 | P.OP_ITS ---
Operative Note Operative Note Date of Service: 06/12/23 Narrative: Preop diagnosis: [Morbid obesity, class 2] Postop diagnosis: [Same] Procedure: [Laparoscopic sleeve gastrectomy, gastropexy, intraoperative upper endoscopy] Surgeon: Osmar Cabezas MD Assist: [Simi Burleson PA-C] Anesthesia: [GET, Ropivicaine, 0.5%] Estimated blood loss: [10cc] Specimen: [Portion of stomach with fundus] Intraoperative findings: [No hiatal hernia, thickened liver, grossly normal liver, stomach] Indications: [The patient is a 37-year-old woman who is seen with the help of Lisa serving as assault amphibious vehicle crewman to discuss bariatric surgery.? The patient reports a lifelong struggle with obesity and a highest body weight of 234lbs.? The patient entered our program for surgical weight loss on 10/17/2022 with a BMI of 39.7/weight of 224 lb.? She is interested in bariatric surgery, specifically a laparoscopic sleeve gastrectomy, because of a lifelong swartz with obesity.? She has tried numerous fad diets and restricted calorie plans of medical weight loss with some success but his always regained weight.?I reviewed the inherent risks of this procedure which include, but are not limited to: Bleeding that could require another operation or blood transfusion; the inherent risks of transfusion reaction infectious disease from blood transfusions; the risk of staple line leaks that could cause sepsis, multi-system organ failure and ; the risk of mesenteric or deep vein thrombosis of the lower extremities that could cause a fatal pulmonary embolism was reviewed; the risk of GERD that could require conversion to gastric bypass was discussed; the risk of recurrent hiatal hernia, especially in the setting of weight regain was reviewed. The risk of weight regain if maladaptive eating and sedentary behavior continue was discussed. The importance of proper diet and increased activity to augment surgical weight loss and the fact that no operation would result in weight loss of poor dietary decisions and sedentary behavior are resumed were discussed at length and apparently understood. The patient had an assault amphibious vehicle crewman present for discussion and [place] consents.?] Procedure: [The patient was identified in the preoperative holding area by myself and again in the operating suite by myself and the OR team. Patient was placed supine on the operating table. Safety straps were utilized and a footboard utilized. The patient was induced in general endotracheal anesthesia administered with excellent effect. An appropriate time-out was performed. The patient's abdomen was then widely prepped and draped in the usual manner for surgery using chlorprep. Antibiotics per protocol were administered by Anesthesia. After infiltrating preemptive local in the skin and subcutaneous tissues in the left upper quadrant, a stab incision was made sharply in the left subcostal abdomen and the Veress needle inserted without incident. An appropriate drop test was performed then a pneumoperitoneum of 15 mmHg was obtained using carbon dioxide. Opening pressures were 7 mmHg. Next, a 5 mm 0 degree scope over a 5 mm Optiview trocar was used to access the abdomen via the epigastric incision in the midline. Once the abdomen was entered, the the trocar obturator was removed and the laparoscope was used to confirm there was no injury from the Veress needle nor trocar insertion injury to the bowel or mesentery, then the scope was switched to a 5 mm 45 degree laparoscope. Next, using preemptive local, additional 5 mm trocars were placed under direct laparoscopic vision on the patient's left abdomen, then right and the 5 mm midline trocar upsized to a 12 mm to accommodate the stapler. The patient was then positioned in reverse Trendelenburg and the liver retractor deployed through the right lateral 5 mm trocar and secured. A 40 Norwegian ViSiGi bougie was inserted by Anesthesia per os and advanced to the stomach to decompress. It was then withdrawn to the GE junction all under direct laparoscopic vision. Dissection was begun along the greater curvature using the 5 mm [place] LigaSure for hemostasis and continued to the left louise of the diaphragm. Dissection was then carried towards the pylorus to 3-4 cm from the pylorus and retro gastric adhesions lysed. The gastroesophageal fat pad was carefully mobilized taking care to avoid injury to the esophagus and stomach and dissection carried towards the short gastrics taking care to avoid injury to the spleen and splenic artery. The diaphragmatic hiatus was carefully examined for a hernia, and no apparent hernia was appreciated. Next, the 40 Fr ViSiGi bougie was advanced by anesthesia under direct vision and laparoscopic guidance and positioned in the antrum approximately 3 cm from the pylorus using laparoscopic graspers to serve as a guide for a stapled sleeve gastrectomy. Stapling was performed with [employer] power stapler Endo-RENITA stapler with a purple 45 and then 60 loads. The bougie served as a guide to maintain the same sleeve caliber to avoid stricture & sleeve distortion. The 10 mm clip second baker was used to apply additional clips to the staple line. Care was taken to be sure that the sleeve laid flat and was without stricture. Once the sleeve was complete, the portion of stomach was placed in the lower abdomen to be sent for removal and permanent section. The staple line, gastrocolic omentum, spleen and short gastric areas were all inspected for hemostasis which was found to be g ood. Next, the bougie was withdrawn under laparoscopic vision used to suction the esophagus and hypopharynx and then discarded. After inspecting again for hemostasis, a gastropexy was performed using 2-0 Polysorb suture to secure the sleeve gastrectomy to the gastrocolic omentum. Next, I broke scrub perform an on-table upper endoscopy to assess the sleeve and the esophagus and stomach. The patient was returned to neutral position and the Olympus 160 gastroscope was advanced taking care to preserve the endotracheal tube. The esophagus was intubated without incident. Minimal air was insufflated and the scope advanced into the newly formed sleeve. The staple line was inspected for hemostasis and the morphology of the sleeve appeared straight with a uniform diameter. Intraoperatively, there was no evidence of staple line leak seen during laparoscopy as air was insufflated via endoscope. The scope was then used to aspirate the air from the sleeve withdrawn and removed. I then rescrubbed to return to the operative field and again inspected the field for hemostasis. After final assessment for hemostasis, the patient was returned to neutral position, a Jaimie used to withdraw the resected gastric specimen which was sent for permanent section. The fascia of the 12 mm midline was closed using an 0 Polysorb figure of 8 on a suture passer under direct laparoscopic vision. The abdomen was then deflated and all trocars removed. The suture was then tied and the skin closed with 4-0 Monocryl subcuticular sutures. The abdomen was then washed and dried, benzoin and Steri-Strips applied followed by Tegaderms. The patient tolerated the procedure well was then extubated the recover in stable condition. All sponge needle and instrument counts were correct x2. The pt requested I called her mother Kerrie at [phone] with Maddie hassan. The pt's mom's questions seemed to be satisfactorily answered.]
[2023-06-12] MEDS: fentaNYL citrate/PF 100 MCG/2 ML VIAL 25 MCG IVPUSH ×2 (13:28→13:38)
[2023-06-12] MEDS: oxyCODONE HCl Immed Release 5 MG TABLET 10 MG PO (13:28)
[2023-06-12 14:01] LABS: Hematocrit 41.8 % (37.0-47.0); Hemoglobin 13.8 g/dl (12.0-16.0)
[2023-06-12 14:12] LABS: Anion Gap 18 (12-20); Blood Urea Nitrogen 7 mg/dL (9-16); Calcium 9.5 mg/dL (8.4-10.2); Carbon Dioxide 19 mmol/L (22-29); Chloride 106 mmol/L (96-108); Creatinine Clr Calc Pharmacy 119.6; Estimated Glomerular Filt Rate > 60; Glucose Random 106 mg/dL (60-115); Potassium 3.5 mmol/L (3.3-5.1); Sodium 139 mmol/L (135-145)
[2023-06-12] MEDS: Lactated Ringers 1,000 ML 100 ML IVCONT ×2 (14:53→23:33)
[2023-06-12] MEDS: 0.9 % Sodium Chloride Flush 3 ML SYRINGE IVFLUSH ×2 (14:53→20:20)
[2023-06-12] MEDS: Famotidine/PF 20 MG/2 ML VIAL IVPUSH ×2 (14:53→20:20)
[2023-06-12] MEDS: ceFAZolin Sodium/Dextrose,Iso 2 GM/50 ML PIGGYBACK IV (16:19)
[2023-06-12] MEDS: Acetaminophen 1,000 MG/100 ML PIGGYBACK 400 MG IV (17:58)
[2023-06-12] MEDS: ondansetron HCL 4 MG/2 ML VIAL IVPUSH (20:20)
[2023-06-12 22:17] LABS: UPreg QC Valid YES; Urine Pregnancy NEGATIVE (NEGATIVE)
[2023-06-12] MEDS: Acetaminophen 1,000 MG/100 ML PIGGYBACK 16.7 MG IV (23:32)
[2023-06-12] MEDS: Metoclopramide HCl 10 MG/2 ML VIAL IVPUSH (23:33)
[2023-06-13 03:24] VITALS: BP 134/77; PULSE 75; RESP 18; TEMP 36.7; O2SAT 98
[2023-06-13] MEDS: ondansetron HCL 4 MG/2 ML VIAL IVPUSH (05:07)
[2023-06-13] MEDS: Acetaminophen 1,000 MG/100 ML PIGGYBACK 16.7 MG IV (05:07)
--- NOTE | 2023-06-13 06:28 | P.PNGS_ITS ---
Subjective Subjective Date of Service: 06/13/23 Physical Exam Vital Signs: Vital Signs: Last Vital Signs Temp 98.1 F 06/13/23 03:24 Pulse 75 06/13/23 03:24 Resp 18 06/13/23 03:24 BP 134/77 06/13/23 03:24 Pulse Ox 98 06/13/23 03:24 O2 Del Method Room Air 06/13/23 03:24 O2 Flow Rate 4 06/12/23 13:07 BMI result Body Mass Index 35.5 Objective Data Active Medications Famotidine (Famotidine/Pf 20 Mg/2 Ml Vial) 20 mg IVPUSH BID [facility] Last Admin: 06/12/23 20:20 Dose: 20 mg Documented By: MICKI Fentanyl (Fentanyl Citrate/Pf 100 Mcg/2 Ml Vial) 25 mcg IVPUSH Q5M PRN; Protocol PRN Reason: Pain, Moderate(Pain Scale 4-6) Last Admin: 06/12/23 13:38 Dose: 25 mcg Documented By: SALMA Hydromorphone HCl (Hydromorphone Hcl 0.5 Mg/0.5 Ml Syringe) 0.25 mg IVPUSH Q4H PRN; Protocol PRN Reason: Pain, Moderate(Pain Scale 4-6) Lactated Ringer's (Lr) 1,000 mls @ 100 mls/hr IVCONT .Q10H [facility] Last Admin: 06/12/23 23:33 Dose: 100 mls/hr Documented By: MICKI Acetaminophen (Ofirmev) 1,000 mg in 100 mls @ 16.7 mls/hr IV .Q6H [facility] [place] Last Admin: 06/13/23 05:07 Dose: 16.7 mls/hr Documented By: MICKI Metoclopramide HCl (Metoclopramide Hcl 10 Mg/2 Ml Vial) 10 mg IVPUSH Q6H PRN PRN Reason: Nausea Last Admin: 06/12/23 23:33 Dose: 10 mg Documented By: MICKI Ondansetron HCl (Ondansetron Hcl 4 Mg/2 Ml Vial) 4 mg IVPUSH ONCE PRN PRN Reason: Nausea and Vomiting Ondansetron HCl (Ondansetron Hcl 4 Mg/2 Ml Vial) 4 mg IVPUSH Q8H [facility] Last Admin: 06/13/23 05:07 Dose: 4 mg Documented By: MICKI Sodium Chloride (0.9 % Sodium Chloride Flush 3 Ml Syringe) [facility] Last Admin: 06/12/23 20:20 Dose: 3 ml Documented By: MICKI Labs 06/12/23 13:51 06/12/23 13:50 Labs: Laboratory Results - last 24 hr 06/12/23 06/12/23 06/12/23 08:30 13:50 21:55 Anion Gap 18 Estim Creat Clear Calc 119.6 Estimated GFR > 60 Random Glucose 106 Calcium 9.5 Beta HCG, Quant < 2 Urine Test NEGATIVE this morning's labs show a stable hemoglobin at 12.9, slight leukocytosis of 11.8 likely from the stress of surgery, platelet count 200 K; BUN 4, creatinine 0.63, electrolytes within normal parameters Procedures Date of Service Date of Service: 06/13/23 Progress Note: A&P Assessment and plan (1) S/P laparoscopic sleeve gastrectomy: Status: Acute (2) Class 2 obesity: Status: Acute (3) Obesity (BMI 30-39.9): Status: Acute (4) Morbid obesity: Status: Acute Plan The patient was offered an industrial maintenance manager and declined. She seems to be doing well regarding hydration. Surgically, she is stable for discharge after the PA reviews any dietary questions with her. Follow up with me next week. The importance of hydration and walking was discussed with the patient. The importance of following the protein shake plan postoperatively was also reviewed and her questions seemed to be satisfactorily answered. Time Spent With Patient Time: Total time managing care of this patient today ____ minutes. Quality Stroke Does the patient have a stroke diagnosis?: No VTE Prior VTE?: No VTE Risk Level:: Surgical - moderate VTE Device Contraindication: N/A - Device Ordered VTE Drug Contraindication: Treatment Not Indicated
[2023-06-13 06:43] LABS: MANUAL DIFF FLAG NO
[2023-06-13 06:49] LABS: Basophils Percent Auto 0.3 % (0-2); Eosinophils Percent Auto 0.3 % (0-4); Hematocrit 38.9 % (37.0-47.0); Hemoglobin 12.9 g/dl (12.0-16.0); Imm Gran Abs Auto 0.06 X10*3/uL (0.00-0.03); Imm Gran Pct Auto 0.5 % (0.0-0.4); Lymphocytes Absolute Auto 1.5 X10*3/uL (1.2-4.9); Lymphocytes Percent Auto 12.4 % (20-40); Mean Corpuscular HGB Conc 33.2 g/dl (31.0-35.0); Mean Corpuscular Hemoglobin 28.2 pg (27.0-33.0); Mean Corpuscular Volume 85.1 fL (80.0-98.0); Mean Platelet Volume 12.8 fL (9.4-12.3); Neutrophils Absolute Auto 9.3 x10*3/uL (2.0-8.3); Neutrophils Percent Auto 78.5 % (45-73); Platelet Count 200 X10*3/uL (160-400); Red Blood Count 4.57 X10*6/uL (4.20-5.50); Red Cell Distribution Width 12.9 % (11.0-16.0); White Blood Count 11.8 X10*3/uL (4.8-10.8)
[2023-06-13 07:02] LABS: Anion Gap 15 (12-20); Blood Urea Nitrogen 4 mg/dL (9-16); Calcium 9.5 mg/dL (8.4-10.2); Carbon Dioxide 19 mmol/L (22-29); Chloride 106 mmol/L (96-108); Creatinine Clr Calc Pharmacy 130.9; Estimated Glomerular Filt Rate > 60; Glucose Random 78 mg/dL (60-115); Potassium 4.1 mmol/L (3.3-5.1); Sodium 136 mmol/L (135-145)
[2023-06-13 07:20] VITALS: BP 116/65; PULSE 75; RESP 16; TEMP 36.3; O2SAT 99
[2023-06-13] MEDS: Famotidine/PF 20 MG/2 ML VIAL IVPUSH (08:20)
[2023-06-13] MEDS: 0.9 % Sodium Chloride Flush 3 ML SYRINGE IVFLUSH (08:21)
--- NOTE | 2023-06-13 10:16 | HO.POSTANES ---
Post Anesthesia Evaluation Post Anesthesia Evaluation Date of Service: 06/13/23 Vital Signs: Vital Signs Temp Pulse Resp BP Pulse Ox O2 Del Method 06/13/23 07:20 97.3 F 75 16 116/65 99 Room Air 06/13/23 03:24 98.1 F 75 18 134/77 98 Room Air 06/12/23 23:33 97.7 F 90 18 133/77 98 Room Air Anesthesia: General Endotracheal-GETA Mental Status: Awake Pain Control: Satisfactory Nausea/Vomiting: None Hydration: Adequate Anesthesia-Related Issues: No Anes. Related Issues
== END 2023-06-13 11:33 | disposition home or self-care (01) | DRG 621 ==
LOC: HO.SSSA 13:10 → HO.S3 13:21
PROVIDERS: Anesthesiology; Nurse Practitioner; Physician Assistant; Physician Assistant Surgical; Admitting Provider Surgery; PCP Family Medicine; Visit Provider Surgery
PROC: 0DB64Z3 Excision of Stomach, Percutaneous Endoscopic Approach, Vertical (ICD-10-PCS; CPT 43845; principal; 2023-06-12 10:00)
DX: E66.01 Morbid (severe) obesity due to excess calories (principal); Z68.35 Body mass index [BMI] 35.0-35.9, adult; Z20.822 Contact with and (suspected) exposure to COVID-19; Z79.899 Other long term (current) drug therapy
CPT/HCPCS: 36415; 80048; 81025; 84702; 85014; 85018; 85025; 86850; 86900; 86901; 87635; 88307; 88342; C1713; C9145; J0131; J0690; J1100; J1170; J2250; J2405; J2765; J2795; J3010

== ENCOUNTER → 2023-06-12 08:03 | Outpatient (BNV) | payer OTHER, SELFPAY | PROVIDERS: Admitting Provider Surgery; PCP Family Medicine; Visit Provider Surgery | DX: E66.01 Morbid (severe) obesity due to excess calories (principal); Z68.36 Body mass index [BMI] 36.0-36.9, adult | CPT/HCPCS: 43659; 43775; 99024 ==

== ENCOUNTER 2023-06-21 10:22 | Outpatient (AMB) | payer OTHER, SELFPAY ==
--- NOTE | 2023-06-21 10:24 | A.OFFVIS_ITS ---
Intake VS Expanded 06/21/23 10:25 Height 5 ft 3 in Weight 189 lb BMI 33.5 BP 124/60 Blood Pressure Location Rt brachial Blood Pressure Position Sitting Pulse 91 Pulse Source Pulse Oximeter Temp 98.0 F Temperature Source Temporal Artery Scan Pulse Oximetry 98 Oxygen Delivery Method Room Air Body Fat 85.6 Body Fat Percentage 45.3 Free Fat Mass 103.4 Muscle Mass 98.2 Visceral Mass 10.0 Water Mass 74.0 BMR 1,477 Intake Visit Reasons: (OV) 9 Days PO LSG 06/12/23 Baseboard Heating Installer Required: No Baseboard Heating Installer Name: Pt declined interpretor Information Interpreted: non-clinical & clinical Clinical Dietetic Technician: Clinical Dietetic Technician Present Allergies No Known Allergies Allergy (Verified 06/21/23 10:40) Medication List - Last Reconciled 06/21/23 by Osmar Cabezas MD acetaminophen 500 mg (15 mL) PO Q6H PRN ondansetron HCl 4 mg PO Q6H PRN pantoprazole 40 mg PO QAM 30 days sucralfate 10 mL PO BID 30 days HPI HPI Comments History of Present Illness Details The patient presents in follow-up from a laparoscopic sleeve gastrectomy without hiatal hernia repair 06/12/23. She entered the SWL program 10/17/22 at a weight of 229.6/BMI40.6. She has lost 40.6 lbs since entering the program & presents today postoperatively at a weight of 199.0 lb/BMI 33.5. She is congratulated on her weight loss. We initially started with the classification officer, however the patient noted that she was comfortable proceeding without an classification officer. Meal plan currently includes 3 celebrate 4 in 1 shakes. She notes she is drinking about 40 oz of water. Patient denies any abdominal pain and is no longer taking any Tylenol. She is continuing on the Carafate and Protonix as directed. Patient denies any regurgitation, chest pain, dysphagia, odynophagia, left flank/back pain, heartburn, GERD. She notes that her bowels are working. Patient just started using her at home treadmill which is her plan for exercise given the recent, ongoing brain and inability to walk outside. [facility] Medical History Class 2 obesity No known health problems Obesity (BMI 30-39.9) Surgical History History of laparoscopic partial gastrectomy Family History Mother Hypertension Father Hypertension Sister No problems noted. Sister No problems noted. Sister No problems noted. Sister No problems noted. Sister Heart disease Daughter No problems noted. Social History Household Members: Family Household Members Other:: MOM Housing: House Are you a primary home care music therapist to a significant other at home: No Do you presently have visiting nurse or other home services: No Alcohol intake: current Alcohol intake frequency: does not drink Patient Tobacco Use Status: Never used Tobacco Review of Systems Const All systems reviewed & are unremarkable except as noted in HPI and below Reports as per HPI Physical Exam Vital Signs: Last Vital Signs Temp 98.0 F 06/21/23 10:25 Pulse 91 06/21/23 10:25 BP 124/60 06/21/23 10:25 Pulse Ox 98 06/21/23 10:25 Oxygen Delivery Method Room Air 06/21/23 10:25 BMI result Body Mass Index 33.5 The patient is in good spirits She is anicteric and nontoxic She is in no acute respiratory distress Abdominal dressings were removed. All 5 incisions have Steri-Strips in place with no erythema, no tenderness and no evidence of a port site hernia. Results Reviewed Results Reviewed: Pathology demonstrating normal gastric mucosa with no dysplasia/atypia and no H pylori was discussed. Assessment & Plan Assessment & Plan (1) S/P laparoscopic sleeve gastrectomy: Code(s): Z98.84 - Bariatric surgery status (2) Morbid obesity: Code(s): E66.01 - Morbid (severe) obesity due to excess calories (3) BMI 33.0-33.9,adult: Code(s): Z68.33 - Body mass index [BMI] 33.0-33.9, adult Plan Meal plan: Patient will continue celebrate 4 in 1 protein shakes. We discussed increasing protein in her diet and changing her diet, but at this point in time, she will continue on the shakes. She will reach out to me if she is interested in adding bars or Latvian yogurt. Patient will continue the Carafate and Protonix The importance of exercise and burning 300 kcal per exercise session with the goal of every day exercise was discussed with the patient. Activity restrictions were reviewed and apparently understood. 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 Patient will follow-up with me in 3 weeks, call with questions and see Estella Garcia. Handout on constipation provided. Coding Level of Care Code Global (05733) Diagnoses S/P laparoscopic sleeve gastrectomy Z98.84 Morbid obesity E66.01 BMI 33.0-33.9,adult Z68.33
[2023-06-21 10:25] VITALS: BP 124/60; PULSE 91; TEMP 36.7; O2SAT 98; BMI 33.5
== END 2023-06-21 11:10 | disposition home or self-care (01) ==
PROVIDERS: PCP Internal Medicine; Visit Provider Surgery
DX: Z98.84 Bariatric surgery status (principal); E66.01 Morbid (severe) obesity due to excess calories; Z68.33 Body mass index [BMI] 33.0-33.9, adult
CPT/HCPCS: 99024

== ENCOUNTER → 2023-06-21 10:22 | Outpatient (BNVA) | payer OTHER, SELFPAY | PROVIDERS: PCP Internal Medicine; Visit Provider Surgery ==

== ENCOUNTER → 2023-07-03 13:46 | Outpatient (BNVA) | payer OTHER, SELFPAY | PROVIDERS: PCP Internal Medicine; Visit Provider Dietitian, Registered | DX: E66.9 Obesity, unspecified (principal); Z68.32 Body mass index [BMI] 32.0-32.9, adult; Z90.3 Acquired absence of stomach [part of]; Z71.3 Dietary counseling and surveillance | CPT/HCPCS: 97803 ==

== ENCOUNTER 2023-07-12 09:50 | Outpatient (AMB) | payer OTHER, SELFPAY ==
--- NOTE | 2023-07-12 09:53 | A.OFFVIS_ITS ---
Intake VS Expanded 07/12/23 10:00 Height 5 ft 3 in Weight 179 lb BMI 31.7 BP 107/62 Blood Pressure Location Rt brachial Blood Pressure Position Sitting Pulse 95 Pulse Source Pulse Oximeter Temp 97.1 F Temperature Source Tympanic Pulse Oximetry 94 Oxygen Delivery Method Room Air Body Fat 76.8 Body Fat Percentage 42.9 Free Fat Mass 102.0 Muscle Mass 96.8 Visceral Mass 9.0 Water Mass 73.2 BMR 1,447 Intake Visit Reasons: (OV) 9 Days PO LSG 06/12/23 Allergies No Known Allergies Allergy (Verified 06/21/23 10:40) HPI HPI Comments History of Present Illness Details The patient presents in follow-up from a laparoscopic sleeve gastrectomy without hiatal hernia repair 06/12/23. She entered the SWL program 10/17/22 at a weight of 229.6/BMI 40.6. She has lost 50.6 lbs since entering the program & presents today postoperatively at a weight of 179.0 lb/BMI 31.7. She is congratulated on her ongoing weight loss and healthy lifestyle changes. The pt saw Estella Guerrero RD & plan re: adding food into her meal plan was reviewed. Pt reports no problems/questions nor concerns. We initially started with the in flight crew member, however the patient noted that she was comfortable proceeding without an in flight crew member. Meal plan currently includes 3 celebrate 4 in 1 shakes. She notes she is drinking about 40 oz of water. She will continuing on the Carafate and Protonix as directed, and discontinue when she runs out since she was not requiring these medicines preop. Patient continues to deny any regurgitation, chest pain, dysphagia, odynophagia, left flank/back pain, heartburn, GERD. She notes that her bowels are working without constipation. Patient just started using her at home treadmill which is her plan for exercise given the recent, ongoing rain and inability to walk outside. [facility] Medical History Class 2 obesity Obesity (BMI 30-39.9) No known health problems Surgical History History of laparoscopic partial gastrectomy Family History Mother Hypertension Father Hypertension Sister No problems noted. Sister No problems noted. Sister No problems noted. Sister No problems noted. Sister Heart disease Daughter No problems noted. Social History Household Members: Family Household Members Other:: MOM Housing: House Are you a primary career development counselor to a significant other at home: No Do you presently have visiting nurse or other home services: No Alcohol intake: current Alcohol intake frequency: does not drink Patient Tobacco Use Status: Never used Tobacco Review of Systems Const All systems reviewed & are unremarkable except as noted in HPI and below Reports as per HPI Physical Exam The patient is in good spirits She is anicteric and nontoxic She is in no acute respiratory distress Abdominal dressings were removed. All 5 incisions have Steri-Strips in place with no erythema, no tenderness and no evidence of a port site hernia. Assessment & Plan Assessment & Plan (1) S/P laparoscopic sleeve gastrectomy: Code(s): Z98.84 - Bariatric surgery status (2) Morbid obesity: Code(s): E66.01 - Morbid (severe) obesity due to excess calories (3) BMI 31.0-31.9,adult: Code(s): Z68.31 - Body mass index [BMI] 31.0-31.9, adult Plan The patient will follow-up with Estella regarding her meal plan and text me weights weekly. She will continue her current exercise regime and is cleared to return to work as per [place] papers. 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 While there are no limitations to her activity postoperatively, she is encouraged to have a discussion regarding worker safety since some of these barrels are in excess of 250 lb and may require two people for safety reasons. I will see the patient back in 2 months for 30 minute visit and she will contact me by text or phone call before if there are any questions. The importance of proper diet and increased activity to optimize surgical weight loss was reviewed. Patient declined an in flight crew member for today's visit. Coding Level of Care Code Global (35160) Diagnoses S/P laparoscopic sleeve gastrectomy Z98.84 Morbid obesity E66.01 BMI 31.0-31.9,adult Z68.31
[2023-07-12 10:00] VITALS: BP 107/62; PULSE 95; TEMP 36.2; O2SAT 94; BMI 31.7
== END 2023-07-12 10:17 | disposition home or self-care (01) ==
PROVIDERS: PCP Internal Medicine; Visit Provider Surgery
DX: Z98.84 Bariatric surgery status (principal); E66.01 Morbid (severe) obesity due to excess calories; Z68.31 Body mass index [BMI] 31.0-31.9, adult
CPT/HCPCS: 99024

== ENCOUNTER → 2023-07-12 09:50 | Outpatient (BNVA) | payer OTHER, SELFPAY | PROVIDERS: PCP Internal Medicine; Visit Provider Surgery ==

== ENCOUNTER 2023-07-17 14:14 | Outpatient (AMB) | payer OTHER, SELFPAY ==
--- NOTE | 2023-07-17 14:10 | A.OFFVIS_ITS ---
Intake VS Expanded 07/17/23 14:11 Height 5 ft 3 in Weight 179 lb BMI 31.7 Intake Visit Reasons: (TV) PO LSG 06/12/23 Allergies No Known Allergies Allergy (Verified 06/21/23 10:40) HPI Nutrition Presentation Details LSG DOS 06/12/[address] Jocelynn JOSE weight (10/09/22) 229# Preop weight 199# weight at 3 wks 182 current weight at 5 wks PO 179# Reason for consult elevated BMI Diet Assmnt Details currently having Two celebrate 4in1 shakes 2 scoops each in 8oz lactaid milk. totals 66g protein from shakes plus every other day 1oz maldivian yogurt or cottage cheese . Non-food days she has a pure protein shake No issues to food. She will be starting work next week, gets 4 breaks total in a 12+hour shift. thr ee 15 minutes ; one 30 minute break Hydration: gatorade zero, water - reports 50oz - she measures it, will be able to drink water all throughout her shift at work when she starts Exercise: walking 5-6 days calorie expenditure = 300 she wants to start going to the gym in a week or so and do strength training. Dietary counseling reduction Diagnosis Nutrition problem #1 overweight/obesity As related to (etiology) #1 excess energy intake and physical inactivity As evidenced by (sign/symptom) #1 high BMI Monitoring/Goals Nutrition problem monitoring total energy intake, level of knowledge/skill, total PRO intake, total CHO intake, weight and oral fluids Outcome progress progressing Learning/Education Readiness to learn good Stages of change action Educational materials provided Yes Most Recent Diabetes Results: Cholesterol 143 mg/dL 06/07/23 HDL Cholesterol 40 mg/dL 06/07/23 Triglycerides 61 mg/dL 06/07/23 Creatinine 0.63 mg/dL (0.5-1.4) 06/13/23 Blood Urea Nitrogen 4 mg/dL (9-16) L 06/13/23 Sodium 136 mmol/L (135-145) 06/13/23 Potassium 4.1 mmol/L (3.3-5.1) 06/13/23 Chloride 106 mmol/L (96-108) 06/13/23 Carbon Dioxide 19 mmol/L (22-29) L 06/13/23 Calcium 9.5 mg/dL (8.4-10.2) 06/13/23 AST 18 U/L (5-31) 06/07/23 ALT 22 U/L (0-31) 06/07/23 Total Protein 7.9 g/dL (6.5-8.0) 06/07/23 Albumin 4.4 g/dL (3.5-5.0) 06/07/23 [facility] Medical History Class 2 obesity Obesity (BMI 30-39.9) No known health problems Surgical History History of laparoscopic partial gastrectomy Family History Mother Hypertension Father Hypertension Sister No problems noted. Sister No problems noted. Sister No problems noted. Sister No problems noted. Sister Heart disease Daughter No problems noted. Social History Household Members: Family Household Members Other:: MOM Housing: House Are you a primary critical care technician to a significant other at home: No Do you presently have visiting nurse or other home services: No Alcohol intake: current Alcohol intake frequency: does not drink Patient Tobacco Use Status: Never used Tobacco Assessment & Plan Assessment & Plan (1) BMI 31.0-31.9,adult: Code(s): Z68.31 - Body mass index [BMI] 31.0-31.9, adult Patient Instructions: continue Two celebrate shakes 2 scoops each in lactaid milk = 66g protein from shakes + add in 1oz protein food daily (chicken, fish, ground turkey or chicken). she will discuss with her employer if she can have adjusted work breaks to allow herself time to have her shakes. She will communicate with our office if any issues and may be able to provide a doc note. Continue walking and add in weight training as tolerated and per clearance of surgeon. communicate as needed. f/u 07/31 11:30 Telehealth Telehealth Location of provider rendering services: practice address Location of patient: address on file Patient Identification confirmed using: Name, : Yes Telehealth method: voice only Patient verbally consented to treatment: Yes Patient verbally consented to billing insurance company: Yes Patient informed of any privacy concerns related to visit: Yes Minutes spent on Phone/Video with Pt.: 20 Coding Level of Care Code Nutr Indiv Subseq (08003) Diagnoses BMI 31.0-31.9,adult Z68.31 Time Spent (min) 20
[2023-07-17 14:11] VITALS: BMI 31.7
== END 2023-07-17 14:16 | disposition home or self-care (01) ==
LOC: HO.HBS 14:14
PROVIDERS: PCP Internal Medicine; Visit Provider Dietitian, Registered
DX: Z68.31 Body mass index [BMI] 31.0-31.9, adult (principal)

== ENCOUNTER → 2023-07-17 14:14 | Outpatient (BNVA) | payer OTHER, SELFPAY | PROVIDERS: PCP Internal Medicine; Visit Provider Dietitian, Registered | DX: E66.9 Obesity, unspecified (principal); Z68.31 Body mass index [BMI] 31.0-31.9, adult; Z71.3 Dietary counseling and surveillance | CPT/HCPCS: 97803 ==

== ENCOUNTER → 2023-07-31 11:41 | Outpatient (BNVA) | payer OTHER, SELFPAY | PROVIDERS: PCP Internal Medicine; Visit Provider Dietitian, Registered | DX: E66.9 Obesity, unspecified (principal); Z98.84 Bariatric surgery status; Z71.3 Dietary counseling and surveillance | CPT/HCPCS: 97803 ==

== ENCOUNTER → 2023-08-29 15:03 | Outpatient (BNVA) | payer OTHER, SELFPAY | PROVIDERS: PCP Internal Medicine; Visit Provider Dietitian, Registered | DX: E66.9 Obesity, unspecified (principal); Z68.28 Body mass index [BMI] 28.0-28.9, adult; Z98.84 Bariatric surgery status; Z71.3 Dietary counseling and surveillance | CPT/HCPCS: 97803 ==

== ENCOUNTER 2023-09-13 08:15 | Outpatient (AMB) | payer OTHER, SELFPAY ==
--- NOTE | 2023-09-13 08:16 | MHC.OFFVISWM ---
Intake VS Expanded 09/13/23 08:25 BP 116/65 Blood Pressure Location Rt brachial Blood Pressure Position Sitting Pulse 75 Pulse Source Pulse Oximeter Temp 96.8 F Temperature Source Tympanic Pulse Oximetry 100 Oxygen Delivery Method Room Air Height 5 ft 3 in Weight 158 lb 9.6 oz BMI 28.1 Body Fat % 36.3 Body Fat Mass 57.6 Fat Free Mass 101.0 Visceral Fat Rating 6.0 Body Water % 45.6 Body Water Mass 72.4 Muscle Mass/Score 96.0 Basal Metabolic Rate/Score 1,401 Intake Visit Reasons: (OV) PO LSG 06/12/23 Allergies No Known Allergies Allergy (Verified 09/13/23 08:29) HPI HPI Comments History of Present Illness Details The patient presents in follow-up from a laparoscopic sleeve gastrectomy without hiatal hernia repair 06/12/23. She entered the SWL program 10/17/22 at a weight of 229.6/BMI 40.6. She has lost 71 lbs since entering the SWL program & presents today postoperatively at a weight of 158.6 lb/BMI 28.1. She is congratulated on her ongoing weight loss and healthy lifestyle changes. The pt saw Estella Guerrero RD & plan re: adding food into her meal plan was reviewed. Pt reports no problems/questions nor concerns. She was declined an die technician for today's visit. Meal plan currently includes 3 celebrate 4 in 1 shakes. She does note dietary min not knee and is currently interested in transitioning to a different protein shake and a multivitamin and will reach out to Estella before her appointment in October with her. She notes she is drinking about 40 oz of water. Patient continues to deny any regurgitation, chest pain, dysphagia, odynophagia, left flank/back pain, heartburn, GERD. She notes that her bowels are working without constipation. Patient is using her at home treadmill which is her plan for exercise and lifting weights 5 days a week. She is pleased with her 71 lb weight loss.. [facility]LY [facility], [facility] Medical History Class 2 obesity Obesity (BMI 30-39.9) No known health problems Surgical History History of laparoscopic partial gastrectomy Family History Mother Hypertension Father Hypertension Sister No problems noted. Sister No problems noted. Sister No problems noted. Sister No problems noted. Sister Heart disease Daughter No problems noted. Social History Household Members: Family Household Members Other:: MOM Housing: House Are you a primary direct care counselor to a significant other at home: No Do you presently have visiting nurse or other home services: No Alcohol intake: current Alcohol intake frequency: does not drink Patient Tobacco Use Status: Never used Tobacco Review of Systems Const All systems reviewed & are unremarkable except as noted in HPI and below Physical Exam Vital Signs: Last Vital Signs Temp 96.8 F 09/13/23 08:25 Pulse 75 09/13/23 08:25 BP 116/65 09/13/23 08:25 Pulse Ox 100 09/13/23 08:25 Oxygen Delivery Method Room Air 09/13/23 08:25 BMI result Body Mass Index 28.1 The patient is in good spirits She is anicteric and nontoxic She is in no acute respiratory distress Abdominal dressings were removed. All 5 incisions are completely healed with no erythema, no tenderness and no evidence of a port site hernia. Assessment & Plan Assessment & Plan (1) S/P laparoscopic sleeve gastrectomy: Code(s): Z98.84 - Bariatric surgery status (2) BMI 28.0-28.9,adult: Code(s): Z68.28 - Body mass index [BMI] 28.0-28.9, adult Plan The patient is doing very well and is pleased with her results. She will reach out to Estella Garcia regarding questions about changing protein shakes and different bariatric multivitamins. The patient is doing very well with her current exercise program and no changes were made. The patient is free to increase activities and is encouraged to trend calorie expenditure. If she develops any questions or problems, she will contact me, otherwise she will be seen for her 6 month postop in 3 months with fasting labs done 2 weeks before the visit. Orders: Orders Comprehensive Met. Panel Today Z68.28 - Body mass index [BMI] 28.0-28.9, adult, Z98.84 - Bariatric surgery status IRON PROFILE Today Z68.28 - Body mass index [BMI] 28.0-28.9, adult, Z98.84 - Bariatric surgery status Prothrombin Time INR Today Z68.28 - Body mass index [BMI] 28.0-28.9, adult, Z98.84 - Bariatric surgery status Lipid Panel Today Z68.28 - Body mass index [BMI] 28.0-28.9, adult, Z98.84 - Bariatric surgery status Type and Screen Today Z68.28 - Body mass index [BMI] 28.0-28.9, adult, Z98.84 - Bariatric surgery status Vitamin B1 Today Z68.28 - Body mass index [BMI] 28.0-28.9, adult, Z98.84 - Bariatric surgery status C Reactive Protein Today Z68. - Body mass index [BMI] 28.0-28.9, adult, Z98.84 - Bariatric surgery status Complete Blood Count Auto Diff Today Z. - Body mass index [BMI] 28.0-28.9, adult, Z98.84 - Bariatric surgery status Zinc Today Z68.28 - Body mass index [BMI] 28.0-28.9, adult, Z98.84 - Bariatric surgery status TSH reflex Free T4 Today Z68.28 - Body mass index [BMI] 28.0-28.9, adult, Z98.84 - Bariatric surgery status Hemoglobin A1c Today Z. - Body mass index [BMI] 28.0-28.9, adult, Z98.84 - Bariatric surgery status Vitamin A Today Z.28 - Body mass index [BMI] 28.0-28.9, adult, Z98.84 - Bariatric surgery status Partial Thromboplastin Time Today Z68.28 - Body mass index [BMI] 28.0-28.9, adult, Z98.84 - Bariatric surgery status Vitamin B12 Today Z68.28 - Body mass index [BMI] 28.0-28.9, adult, Z98.84 - Bariatric surgery status PTHI Today Z68.28 - Body mass index [BMI] 28.0-28.9, adult, Z98.84 - Bariatric surgery status Vitamin D 25-OH Total Today Z68.28 - Body mass index [BMI] 28.0-28.9, adult, Z98.84 - Bariatric surgery status Ferritin Today Z68.28 - Body mass index [BMI] 28.0-28.9, adult, Z98.84 - Bariatric surgery status Coding Level of Care Code Est Pt Level 4 (61524) Diagnoses S/P laparoscopic sleeve gastrectomy Z98.84 BMI 28.0-28.9,adult Z68.28
[2023-09-13 08:25] VITALS: BP 116/65; PULSE 75; TEMP 36; O2SAT 100; BMI 28.1
== END 2023-09-13 08:42 | disposition home or self-care (01) ==
PROVIDERS: PCP Internal Medicine; Visit Provider Surgery
DX: E66.3 Overweight (principal); Z68.28 Body mass index [BMI] 28.0-28.9, adult; Z90.3 Acquired absence of stomach [part of]; Z98.84 Bariatric surgery status
CPT/HCPCS: 99214

== ENCOUNTER → 2023-09-13 08:15 | Outpatient (BNVA) | payer OTHER, SELFPAY | PROVIDERS: PCP Internal Medicine; Visit Provider Surgery ==

== ENCOUNTER 2023-10-09 15:15 | Outpatient (AMB) | payer OTHER, SELFPAY ==
--- NOTE | 2023-10-09 15:05 | MHC.AMNUTRGE ---
Intake VS Expanded 10/09/23 15:10 Height 5 ft 3 in Weight 155 lb BMI 27.5 Intake Visit Reasons: (TV) PO LSG 06/12/23 Safety Security Officer Required: No Information Interpreted: non-clinical & clinical Allergies No Known Allergies Allergy (Verified 09/13/23 08:29) HPI Nutrition Presentation Details LSG DOS 06/12/[address] Jocelynn JOSE weight (10/09/22) 229# Preop weight 199# weight at 3 wks 182 weight at 5 wks PO 179# weight at 7wks 174# weight at 11wks PO 163# current weight 4MO 155# Reason for consult elevated BMI Diet Assmnt Details Using the 4in1 but dislikes it and wants to stop these. she doesn't have a preference for a different shake, is open to using anything. She woud like to have food for breakfast, shake for lunch, and a dinner meal Currnelty eating 2oz protein, 1oz veg and this is comfortable She has purchased the celebratee vitamins and deepika take one daily after eating Exercise: started going to the gym 5 days per week 30 min treadmill walking incline, plus 30 minutes strength training. Dietary counseling reduction Diagnosis Nutrition problem #1 overweight/obesity As related to (etiology) #1 excess energy intake and physical inactivity As evidenced by (sign/symptom) #1 high BMI Monitoring/Goals Nutrition problem monitoring total energy intake, level of knowledge/skill, total PRO intake, total CHO intake, weight and oral fluids Outcome progress progressing Learning/Education Readiness to learn good Stages of change action Educational materials provided Yes Most Recent Diabetes Results: No Data to Display [facility] Medical History Class 2 obesity Obesity (BMI 30-39.9) No known health problems Surgical History History of laparoscopic partial gastrectomy Family History Mother Hypertension Father Hypertension Sister No problems noted. Sister No problems noted. Sister No problems noted. Sister No problems noted. Sister Heart disease Daughter No problems noted. Social History Household Members: Family Household Members Other:: MOM Housing: House Are you a primary clinical manager home care to a significant other at home: No Do you presently have visiting nurse or other home services: No Alcohol intake: current Alcohol intake frequency: does not drink Patient Tobacco Use Status: Never used Tobacco Assessment & Plan Assessment & Plan (1) Overweight (BMI 25.0-29.9): Code(s): E66.3 - Overweight Plan nutrition follow up in Dec at request of pt Patient Instructions: Advance diet to food now. Breakfast 2 eggs, lunch protein shake, 3pm shake or bar or yogurt or cottage cheese, dinner 2oz protein and veg Telehealth Telehealth Location of provider rendering services: practice address Location of patient: address on file Patient Identification confirmed using: Name, : Yes Telehealth method: voice only Patient verbally consented to treatment: Yes Patient verbally consented to billing insurance company: Yes Patient informed of any privacy concerns related to visit: Yes Minutes spent on Phone/Video with Pt.: 20 Coding Level of Care Code Nutr Indiv Subseq (15405) Diagnoses Overweight (BMI 25.0-29.9) E66.3 Time Spent (min) 20
[2023-10-09 15:10] VITALS: BMI 27.5
== END 2023-10-09 15:20 | disposition home or self-care (01) ==
LOC: HO.HBS 15:15
PROVIDERS: PCP Internal Medicine; Visit Provider Dietitian, Registered
DX: E66.3 Overweight (principal)

== ENCOUNTER → 2023-10-09 15:15 | Outpatient (BNVA) | payer OTHER, SELFPAY | PROVIDERS: PCP Internal Medicine; Visit Provider Dietitian, Registered | DX: E66.3 Overweight (principal); Z68.27 Body mass index [BMI] 27.0-27.9, adult; Z90.3 Acquired absence of stomach [part of]; Z71.3 Dietary counseling and surveillance | CPT/HCPCS: 97803 ==

== ENCOUNTER 2023-12-06 06:01 | Outpatient (REF) | payer OTHER, SELFPAY ==
[2023-12-06 06:21] LABS: MANUAL DIFF FLAG NO
[2023-12-06 07:34] LABS: Basophils Percent Auto 0.3 % (0-2); Eosinophils Absolute Auto 0.1 X10*3/uL (0.0-0.4); Eosinophils Percent Auto 1.9 % (0-4); Hematocrit 37.4 % (37.0-47.0); Hemoglobin 12.5 g/dl (12.0-16.0); Imm Gran Abs Auto 0.05 X10*3/uL (0.00-0.03); Imm Gran Pct Auto 0.8 % (0.0-0.4); Lymphocytes Absolute Auto 1.5 X10*3/uL (1.2-4.9); Lymphocytes Percent Auto 24.1 % (20-40); Mean Corpuscular HGB Conc 33.4 g/dl (31.0-35.0); Mean Corpuscular Hemoglobin 28.4 pg (27.0-33.0); Mean Platelet Volume 12.8 fL (9.4-12.3); Monocytes Absolute Auto 0.4 X10*3/uL (0.1-1.2); Neutrophils Absolute Auto 4.1 x10*3/uL (2.0-8.3); Neutrophils Percent Auto 66.9 % (45-73); Platelet Count 187 X10*3/uL (160-400); Red Cell Distribution Width 13.6 % (11.0-16.0); White Blood Count 6.2 X10*3/uL (4.8-10.8)
[2023-12-06 07:36] LABS: Prothrombin Time 12.4 SEC (11.1-13.3)
[2023-12-06 07:39] LABS: Partial Thromboplastin Time 36.2 SEC (26.0-36.8)
[2023-12-06 07:40] LABS: Estimated Average Glucose 97 mg/dL
[2023-12-06 08:04] LABS: Alanine Aminotransferase 18 U/L (0-31); Albumin Level 4.2 g/dL (3.5-5.0); Alkaline Phosphatase 53 U/L (39-117); Anion Gap 10 (12-20); Aspartate Amino Transferase 16 U/L (5-31); Bilirubin Total 0.6 mg/dL (0.0-1.0); Blood Urea Nitrogen 12 mg/dL (9-16); Calcium 9.1 mg/dL (8.4-10.2); Carbon Dioxide 27 mmol/L (22-29); Chloride 106 mmol/L (96-108); Cholesterol 154 mg/dL (<200); Estimated Glomerular Filt Rate > 60; Glucose Random 84 mg/dL (60-115); HDL Cholesterol 52 mg/dL (>40); Iron 68 mcg/dL (30-160); LDL Cholesterol Calculated 94 mg/dL (<100); Percent Iron Saturation 34 % (15-50); Potassium 3.8 mmol/L (3.3-5.1); Sodium 139 mmol/L (135-145); Total Iron Binding Capacity 201 mcg/dL (228-428); Total Protein 7.1 g/dL (6.5-8.0); Triglycerides 43 mg/dL (<150); Unsaturated Iron Binding 133 ug/dL
[2023-12-06 08:25] LABS: Ferritin 213 ng/mL (10-122); TSH reflex Free T4 1.43 uIU/mL (0.32-4.0); Vitamin D 25-OH Total 46.2 ng/mL (>30)
[2023-12-06 08:34] LABS: Vitamin B12 619 pg/mL (200-900)
[2023-12-09 18:08] LABS: Zinc 58 mcg/dL (60-130)
[2023-12-11 05:17] LABS: Vitamin A 28 mcg/dL (38-98)
[2023-12-11 12:52] LABS: Vitamin B1 19 nmol/L (8-30)
== END 2023-12-06 06:02 | disposition home or self-care (01) ==
LOC: HO.LAB 06:01
PROVIDERS: PCP Internal Medicine; Visit Provider Surgery
DX: Z98.84 Bariatric surgery status (principal)
CPT/HCPCS: 36415; 80053; 80061; 82306; 82607; 82728; 83036; 83540; 84425; 84443; 84590; 84630; 85025; 85610; 85730; 86140; 86850; 86900; 86901

== ENCOUNTER 2023-12-20 08:50 | Outpatient (AMB) | payer OTHER, SELFPAY ==
--- NOTE | 2023-12-20 08:52 | A.OFFVIS_ITS ---
Intake VS Expanded 12/20/23 08:57 BP 122/62 Blood Pressure Location Rt brachial Blood Pressure Position Sitting Pulse 78 Pulse Source Pulse Oximeter Temp 96.1 F L Temperature Source Tympanic Pulse Oximetry 99 Oxygen Delivery Method Room Air Height 5 ft 3 in Weight 145 lb 9.6 oz BMI 25.8 Body Fat % 31.8 Body Fat Mass 46.2 Fat Free Mass 99.2 Visceral Fat Rating 5.0 Body Water % 48.8 Body Water Mass 71.0 Muscle Mass/Score 94.2 Basal Metabolic Rate/Score 1,361 Intake Visit Reasons: (OV) PO LSG 06/12/23 Allergies No Known Allergies Allergy (Verified 12/20/23 08:59) Medication List - Last Reconciled 12/20/23 by Simi Burleson PA-C [id number] K 45 mg iron- 800 mcg-120 mcg (Bariatric Multivitamins) caps PO HPI HPI Comments History of Present Illness Details 38 yo woman who is 6 months s/p LSG with Dr Cabezas, has been followed by Estella post op. Equipment Validation Specialist weight of 229 lbs, TBWL is 83.4 lbs or 36.4%. Non/v. abd pain or reflux. She want sot gain muscle and loose more weight. Meal plan: needs about 60 grams per day. black coffee with splenda 9am Breakfast - 2 eggs only 12 pm - Fairlife shake 3pm - bar or cottage cheese or yogurt 6 pm - 2 oz protien and 2 oz vegetable o r fruit Exercise - gym - 5d week. start treadmill 4.4, incline 3-5 20 minutes, 200 calories. UE - 2d/week - 15 lb 3 sets of 15, Abds - 3d 35 lbs, LE - leg press inner outer thigh - 50 lbs Post op complications: none CHANTEL:never DM: never HTN: never Hyperlipidemia: never GERD: 0 Satisfaction with present condition - satisfied [facility] Medical History Class 2 obesity Obesity (BMI 30-39.9) No known health problems Surgical History History of laparoscopic partial gastrectomy Family History Mother Hypertension Father Hypertension Sister No problems noted. Sister No problems noted. Sister No problems noted. Sister No problems noted. Sister Heart disease Daughter No problems noted. Social History Household Members: Family Household Members Other:: MOM Housing: House Are you a primary family day care worker to a significant other at home: No Do you presently have visiting nurse or other home services: No Alcohol intake: current Alcohol intake frequency: does not drink Patient Tobacco Use Status: Never used Tobacco Physical Exam Const General: cooperative, healthy appearing and no acute distress GI Inspection: Yes incision (all completely healed) Palpation (GI): Soft to palpation, nontender, no hernias and no masses Assessment & Plan Assessment & Plan (1) Overweight: Code(s): E66.3 - Overweight Plan: 6 months post op doing great - would like to reduce to 3 meals per day, needs 60 gram protein per day 9am - 2 eggs , 1 oz fruit 1pm - shake 6pm -3oz protein and 2 oz vegetable Exercise - treadmill 5d speed 4.4 - 3 - 10, 400 calories, increase calorie burn for fat mass loss. Weights - 3 d/ week per muscle group - 3 sets of 20. increase reps to build muscle. Labs reviewed, low vitamin A - prescritpion sent to her pharmacy. Has next appt scheduled with Estella. I spent 25 minutes in total with patient reviewing/updating records, examining the patient and counseling the patient on weight management as detailed above. (2) S/P laparoscopic sleeve gastrectomy: Code(s): Z98.84 - Bariatric surgery status (3) Vitamin A deficiency: Code(s): E50.9 - Vitamin A deficiency, unspecified Plan see above Medications: New vitamin A palmitate 3,000 mcg PO DAILY 90 caps 1RF Coding Level of Care Code Est Pt Level 4 (55394) Diagnoses Overweight E66.3 S/P laparoscopic sleeve gastrectomy Z98.84 Vitamin A deficiency E50.9
[2023-12-20 08:57] VITALS: BP 122/62; PULSE 78; TEMP 35.6; O2SAT 99; BMI 25.8
== END 2023-12-20 09:21 | disposition home or self-care (01) ==
PROVIDERS: PCP Internal Medicine; Visit Provider Physician Assistant
DX: E66.3 Overweight (principal); Z98.84 Bariatric surgery status; E50.9 Vitamin A deficiency, unspecified
CPT/HCPCS: 99214

== ENCOUNTER → 2023-12-20 08:50 | Outpatient (BNVA) | payer OTHER, SELFPAY | PROVIDERS: PCP Internal Medicine; Visit Provider Physician Assistant ==